=== PATIENT | female | born 1960 | race Hispanic/Latino ===

== ENCOUNTER → 2020-12-08 | Day surgery (SDC) | payer SELFPAY ==
[~2020-12-08] MED LIST: METFORMIN HCL500 MG PO; MIDAZOLAM HCL 2 MG/2 ML VIAL ONE; NITROFURANTOIN100 MG PO; OR PHACO EYE KIT ONE; PREOP PHACO EYE KIT ONE
[2020-12-08 12:00] VITALS: BP 131/61
== END | disposition home or self-care (01) ==
LOC: OR 09:42
PROVIDERS: ATTEND Ophthalmology
DX: H25.11 Age-related nuclear cataract, right eye (principal); E11.9 Type 2 diabetes mellitus without complications; Z88.0 Allergy status to penicillin; Z01.810 Encounter for preprocedural cardiovascular examination; Z01.812 Encounter for preprocedural laboratory examination; Z20.822 Contact with and (suspected) exposure to COVID-19; Z79.84 Long term (current) use of oral hypoglycemic drugs; Z87.440 Personal history of urinary (tract) infections; Z87.442 Personal history of urinary calculi
CPT/HCPCS: 36415; 66984; 82948; J2250; U0002; V2632

== ENCOUNTER → 2020-12-22 | Day surgery (SDC) | payer SELFPAY ==
[~2020-12-22] MED LIST changes: +FENTANYL CITRATE/PF 100MCG/2 ML INJ ONE
[2020-12-22 12:21] VITALS: BP 129/77
== END | disposition home or self-care (01) ==
LOC: OR 09:22
PROVIDERS: ATTEND Ophthalmology
DX: H25.12 Age-related nuclear cataract, left eye (principal); E11.9 Type 2 diabetes mellitus without complications; Z79.84 Long term (current) use of oral hypoglycemic drugs; Z01.812 Encounter for preprocedural laboratory examination; Z20.822 Contact with and (suspected) exposure to COVID-19; Z88.0 Allergy status to penicillin
CPT/HCPCS: 36415; 66984; 82948; J2250; J3010; U0002